=== PATIENT | female | born 1990 | race African-American/Black ===

== ENCOUNTER 2019-12-02 23:57 | Emergency (ER) | payer MEDICAID, OTHER ==
[~2019-12-02] VITALS: Ht 160 cm; Wt 62.9 kg
[~2019-12-02 23:57] MED LIST: EXCEDRIN
[2019-12-03] MEDS ORDERED: LIDOCAINE 5% PATCH TOP SCH (02:30)
[2019-12-03] MEDS ORDERED: ACETAMINOPHEN 500MG TABLET PO ONE (02:30)
[2019-12-03 02:40] LABS: CLARITY URINE CLEAR (CLEAR); COLOR URINE YELLOW (YELLOW); KETONES URINE TRACE (NEGATIVE); LEUKOCYTE ESTERASE URINE TRACE (NEGATIVE); NITRITE URINE NEGATIVE (NEGATIVE); OCCULT BLOOD URINE 1+ (NEGATIVE); PROTEIN URINE NEGATIVE (NEGATIVE); SPECIFIC GRAVITY URINE 1.026 (1.005-1.030)
[2019-12-03] MEDS ORDERED: CEPHALEXIN 250MG CAPSULE PO SCH (03:30)
[2019-12-03 04:06] VITALS: BP 113/66
== END 2019-12-03 04:07 | disposition home or self-care (01) ==
LOC: ER 23:57
DX: O26.892 Other specified pregnancy related conditions, second trimester (principal); R51 Headache; M54.5 Low back pain; R68.84 Jaw pain; O23.42 Unspecified infection of urinary tract in pregnancy, second trimester; Z3A.24 24 weeks gestation of pregnancy
CPT/HCPCS: 81003; 81025; 99284

== ENCOUNTER 2020-03-16 11:50 | Observation (INO) | payer OTHER ==
[~2020-03-16] VITALS: Ht 160 cm; Wt 67.1 kg
[2020-03-16] MEDS ORDERED: PREN1TAB23 PO (12:25)
[2020-03-16 13:09] LABS: CLARITY URINE CLOUDY (CLEAR); COLOR URINE YELLOW (YELLOW); KETONES URINE NEGATIVE (NEGATIVE); LEUKOCYTE ESTERASE URINE TRACE (NEGATIVE); NITRITE URINE NEGATIVE (NEGATIVE); OCCULT BLOOD URINE NEGATIVE (NEGATIVE); PH URINE 6.5 (4.5-8.0); PROTEIN URINE NEGATIVE (NEGATIVE); SPECIFIC GRAVITY URINE 1.018 (1.005-1.030)
[2020-03-16] MEDS ORDERED: LABETALOL HCL 100MG TABLET PO SCH (13:55)
[2020-03-16] MEDS ORDERED: ACETAMINOPHEN 500MG TABLET PO ONE (14:00)
[2020-03-23] MEDS ORDERED: IBUP-2028 PO (05:47)
== END 2020-03-16 15:00 | disposition home or self-care (01) ==
LOC: 8 EST LDRP 11:50
PROVIDERS: ADMIT Obstetrics & Gynecology; ATTEND Obstetrics & Gynecology
DX: O26.893 Other specified pregnancy related conditions, third trimester (principal); R10.31 Right lower quadrant pain; R10.32 Left lower quadrant pain; Z3A.37 37 weeks gestation of pregnancy
CPT/HCPCS: 81003; 99281; G0378

== ENCOUNTER 2020-03-20 17:35 | Inpatient (IN) | payer MEDICAID, OTHER ==
[~2020-03-20] VITALS: Ht 160 cm; Wt 67.1 kg
[~2020-03-20 17:35] MED LIST changes: +PREN1TAB23 PO
[2020-03-20] MEDS ORDERED: DEXT 5%/LACTATED RINGERS 1,000 ML IV SCH (18:26)
[2020-03-20] MEDS ORDERED: DEXT 5%/LR + PITOCIN 20UNITS/L 1,000 ML IV SCH (18:27)
[2020-03-20] MEDS ORDERED: LANOLIN OINT 7GM TUBE TOP PRN (18:30)
[2020-03-20] MEDS ORDERED: ACETAMINOPHEN WITH CODEINE 300/30MG TABLET PO PRN (18:30)
[2020-03-20] MEDS ORDERED: BISACODYL 10MG SUPP PR PRN (18:30)
[2020-03-20] MEDS ORDERED: BENZOCAINE/LANOLIN/ALOE VERA SPRAY TOP PRN (18:30)
[2020-03-20] MEDS ORDERED: DIPHENHYDRAMINE 25MG CAPSULE PO PRN (18:30)
[2020-03-20] MEDS ORDERED: METHYLERGONOVINE MALEATE 0.2 MG/ML IM PRN (18:30)
[2020-03-20] MEDS ORDERED: RHO(D) IMMUNE GLOBULIN 300 MCG/SYR IM NR (18:30)
[2020-03-20] MEDS ORDERED: HEMORRHOIDAL SUPP PR PRN (18:30)
[2020-03-20] MEDS: ACETAMINOPHEN WITH CODEINE 300/30MG TABLET PO PRN (19:29)
[2020-03-20 19:31] LABS: BASOPHILS % 0.3 % (0.0-2.0); HEMATOCRIT. 34.5 % (36.0-48.0); LYMPHOCYTES % 13.3 % (20.0-50.0); MEAN CORPUSCULAR HEMOGLOBIN 35.3 pg (28.0-32.0); MEAN CORPUSCULAR VOLUME 101.7 fL (81.0-99.0); MEAN PLATELET VOLUME 10.3 fl (7.4-10.4); MONOCYTES % 7.2 % (2.0-8.0); NEUTROPHILS % 78.2 % (40.0-76.0); PLATELET 263 x1000/uL (130-400); RED BLOOD CELL COUNT 3.39 mill/uL (4.2-5.4); RED CELL DISTRIBUTION WIDTH 13.8 % (11.6-14.6)
[2020-03-20 19:38] LABS: INR 0.9; PARTIAL THROMBOPLASTIN TIME 28.5 sec (23.4-31.0); PROTHROMBIN TIME 9.8 sec (9.6-11.0)
[2020-03-20 20:00] VITALS: BP 104/65
[2020-03-20 20:00] LABS: HEPATITIS B SURFACE ANTIGEN NEGATIVE
[2020-03-20] MEDS: MAGNESIUM/ALUMINUM HYDROXIDE/SIMETHICONE 30ML UDC PO SCH (21:22)
[2020-03-20] MEDS: SIMETHICONE 80MG TABLET CHEW PO SCH (21:23)
[2020-03-20] MEDS: DOCUSATE SODIUM 100MG CAPSULE PO SCH (21:23)
[2020-03-20] MEDS: IBUPROFEN 400MG TABLET PO PRN (21:36)
[2020-03-20 22:04] LABS: CLARITY URINE CLEAR (CLEAR); COLOR URINE RED (YELLOW); KETONES URINE NEGATIVE (NEGATIVE); LEUKOCYTE ESTERASE URINE 1+ (NEGATIVE); NITRITE URINE NEGATIVE (NEGATIVE); OCCULT BLOOD URINE 3+ (NEGATIVE); PROTEIN URINE 1+ (NEGATIVE); SPECIFIC GRAVITY URINE 1.008 (1.005-1.030)
[2020-03-20 22:14] LABS: *AMPHETAMINES SCREEN URINE NEGATIVE (NEGATIVE); *BARBITURATES SCREEN URINE NEGATIVE (NEGATIVE); *BENZODIAZEPINES SCREEN URINE NEGATIVE (NEGATIVE); *COCAINE SCREEN URINE NEGATIVE (NEGATIVE); METHADONE URINE SCREEN NEGATIVE (NEGATIVE)
[2020-03-20 22:15] LABS: CANNABINOID URINE SCREEN NEGATIVE (NEGATIVE); PHENCYCLIDINE URINE SCREEN NEGATIVE (NEGATIVE)
[2020-03-20 22:20] LABS: OPIATES URINE SCREEN PRESUMTIVE POSITIVE (NEGATIVE)
[2020-03-21 04:00] VITALS: BP 99/55
[2020-03-21] MEDS ORDERED: TETANUS, DIPHTHERIA, PERTUSSIS VAC/PF 0.5ML (>7YR OLD) IM ONE (06:30)
[2020-03-21 06:51] LABS: BASOPHILS % 0.4 % (0.0-2.0); EOSINOPHILS % 0.8 % (0.0-5.0); HEMATOCRIT. 34.1 % (36.0-48.0); HEMOGLOBIN. 11.7 g/dL (12.0-16.0); MEAN CORPUSCULAR HEMOGLOBIN 34.9 pg (28.0-32.0); MEAN CORPUSCULAR VOLUME 101.8 fL (81.0-99.0); MEAN PLATELET VOLUME 9.5 fl (7.4-10.4); MONOCYTES % 7.9 % (2.0-8.0); NEUTROPHILS % 77.9 % (40.0-76.0); PLATELET 261 x1000/uL (130-400); RED BLOOD CELL COUNT 3.35 mill/uL (4.2-5.4); RED CELL DISTRIBUTION WIDTH 13.7 % (11.6-14.6)
[2020-03-21 08:00] VITALS: BP 104/59
[2020-03-21] MEDS: MAGNESIUM/ALUMINUM HYDROXIDE/SIMETHICONE 30ML UDC PO SCH ×4 (09:00→20:52)
[2020-03-21] MEDS: FERROUS SULFATE 325MG TABLET PO SCH ×3 (09:01→17:59)
[2020-03-21] MEDS: SIMETHICONE 80MG TABLET CHEW PO SCH ×4 (09:01→20:56)
[2020-03-21] MEDS: PRENATAL VIT/FE FUMARATE/FA TABLET PO SCH (09:01)
[2020-03-21] MEDS: ACETAMINOPHEN WITH CODEINE 300/30MG TABLET PO PRN ×2 (09:06→17:59)
[2020-03-21] MEDS: IBUPROFEN 400MG TABLET PO PRN (13:13)
[2020-03-21 16:15] VITALS: BP 96/60
[2020-03-21] MEDS: DOCUSATE SODIUM 100MG CAPSULE PO SCH (20:51)
[2020-03-21 22:00] VITALS: BP 109/76
[2020-03-22 05:39] VITALS: BP 103/71
[2020-03-22 06:47] LABS: HEMATOCRIT. 32.7 % (36.0-48.0); HEMOGLOBIN. 11.1 g/dL (12.0-16.0); MEAN CORPUSCULAR HEMOGLOBIN 34.7 pg (28.0-32.0); MEAN CORPUSCULAR VOLUME 101.8 fL (81.0-99.0); MEAN PLATELET VOLUME 9.8 fl (7.4-10.4); PLATELET 266 x1000/uL (130-400); RED BLOOD CELL COUNT 3.21 mill/uL (4.2-5.4); RED CELL DISTRIBUTION WIDTH 13.6 % (11.6-14.6)
[2020-03-22 07:53] VITALS: BP 103/67
[2020-03-22] MEDS: MAGNESIUM/ALUMINUM HYDROXIDE/SIMETHICONE 30ML UDC PO SCH (08:38)
[2020-03-22] MEDS: FERROUS SULFATE 325MG TABLET PO SCH (08:38)
[2020-03-22] MEDS: SIMETHICONE 80MG TABLET CHEW PO SCH (08:38)
[2020-03-22] MEDS: PRENATAL VIT/FE FUMARATE/FA TABLET PO SCH (08:38)
[2020-03-22] MEDS: ACETAMINOPHEN WITH CODEINE 300/30MG TABLET PO PRN (08:39)
[2020-03-22 12:39] LABS: PLATELET ESTIMATE NORMAL
[2020-03-23] MEDS ORDERED: IBUP-2028 PO (05:47)
== END 2020-03-22 11:30 | disposition home or self-care (01) | DRG 560 ==
LOC: OBSVTOIN 17:35 → 8 EST LDRP 17:35 → 8 EST A/PP 21:01
PROVIDERS: ADMIT Obstetrics & Gynecology; ATTEND Obstetrics & Gynecology
PROC: 10E0XZZ Delivery of Products of Conception, External Approach (ICD-10-PCS; principal; 2020-03-20)
DX: O62.3 Precipitate labor (principal); O99.324 Drug use complicating childbirth; F11.10 Opioid abuse, uncomplicated; O99.03 Anemia complicating the puerperium; Z37.0 Single live birth; Z3A.39 39 weeks gestation of pregnancy
CPT/HCPCS: 36415; 80305; 81003; 85025; 86592; 86703; 86762; 86850; 86900; 87340; 99281; J2590

== ENCOUNTER 2020-11-19 10:48 | Emergency (ER) | payer OTHER ==
[~2020-11-19] VITALS: Ht 165.1 cm; Wt 73.0 kg
[~2020-11-19 10:48] MED LIST changes: -EXCEDRIN; +IBUP-2028 PO; -PREN1TAB23 PO
[2020-11-19] MEDS ORDERED: ACETAMINOPHEN 325MG TABLET PO PRN (11:15)
[2020-11-19 11:43] LABS: BASOPHILS % 0.6 % (0.0-2.0); EOSINOPHILS % 2.4 % (0.0-5.0); HEMATOCRIT. 35.8 % (36.0-48.0); HEMOGLOBIN. 12.2 g/dL (12.0-16.0); LYMPHOCYTES % 22.7 % (20.0-50.0); MEAN CORPUSCULAR HEMOGLOBIN 34.3 pg (28.0-32.0); MEAN CORPUSCULAR VOLUME 100.4 fL (81.0-99.0); MEAN PLATELET VOLUME 8.5 fl (7.4-10.4); MONOCYTES % 7.8 % (2.0-8.0); NEUTROPHILS % 66.5 % (40.0-76.0); PLATELET 348 x1000/uL (130-400); RED BLOOD CELL COUNT 3.56 mill/uL (4.2-5.4); RED CELL DISTRIBUTION WIDTH 13.8 % (11.6-14.6)
[2020-11-19 11:52] LABS: CHLORIDE 111 mEq/L (98-107)
[2020-11-19 12:02] LABS: B-HCG QUANTITATIVE 3 mIU/mL (<3)
[2020-11-19 16:43] LABS: CLARITY URINE CLOUDY (CLEAR); KETONES URINE NEGATIVE (NEGATIVE); LEUKOCYTE ESTERASE URINE 1+ (NEGATIVE); NITRITE URINE NEGATIVE (NEGATIVE); OCCULT BLOOD URINE 3+ (NEGATIVE); PROTEIN URINE 4+ (NEGATIVE); SPECIFIC GRAVITY URINE 1.023 (1.005-1.030); UROBILINOGEN URINE 0.2 E.U./dL (0.2-1.0)
[2020-11-19 16:52] LABS: COLOR URINE BLOODY RED (YELLOW)
[2020-11-19 17:15] VITALS: BP 109/66
== END 2020-11-19 17:23 | disposition home or self-care (01) ==
LOC: ER 10:54
DX: N93.9 Abnormal uterine and vaginal bleeding, unspecified (principal); N39.0 Urinary tract infection, site not specified; F41.9 Anxiety disorder, unspecified; F32.9 Major depressive disorder, single episode, unspecified
CPT/HCPCS: 36415; 76830; 76856; 80053; 81003; 84702; 85025; 86850; 86900; 93005; 99285